=== PATIENT | male | born 1990 | race Caucasian/White ===

== ENCOUNTER 2018-02-24 15:55 | Emergency (ER) | payer OTHER ==
[2018-02-24] MEDS: LIDOCAINE 2% (MDV) 20 ML INJ INJ (16:18)
== END 2018-02-24 17:34 | disposition home or self-care (01) ==
LOC: FTE 15:55
DX: S61.412A Laceration without foreign body of left hand, initial encounter (principal); W01.118A Fall on same level from slipping, tripping and stumbling with subsequent striking against other sharp object, initial encounter; Y92.9 Unspecified place or not applicable
CPT/HCPCS: 12002; 73130-LT; 99283-25